=== PATIENT | male | born 1950 | race Caucasian/White ===

== ENCOUNTER → 2021-10-21 | Outpatient (CLI) | payer MEDICARE, OTHER | LOC: COL.RAD 09:46 | DX: R16.1 Splenomegaly, not elsewhere classified (principal) ==

== ENCOUNTER 2023-01-18 09:02 | Outpatient (CLI) | payer MEDICARE, OTHER ==
[~2023-01-18] VITALS: Ht 170.2 cm; Wt 89.2 kg
[2023-01-18 09:35] VITALS: BP 166/57; PULSE 59; TEMP 97.1
[2023-01-18] MEDS ORDERED: VIGAMOX 0.5% 3 M3 ML OP (09:54)
[2023-01-18] MEDS ORDERED: PREDFORTE5ML (09:54)
[2023-01-18] MEDS ORDERED: PRINIVIL10 MG PO (09:54)
[2023-01-18] MEDS ORDERED: MEGARED ADVANC1 EAC1 PO (09:56)
[2023-01-18] MEDS ORDERED: CRESTOR 10MG10 MG PO (09:56)
[2023-01-18 09:58] VITALS: BP 166/57; PULSE 59; TEMP 97.1
--- NOTE | 2023-01-18 10:01 | NUR ---
908-PATIENT ARRIVED TO [facility] VIA AMBULATION, ALERT AND ORIENTED. PT HISTORY AND ALLERGIES REVIEWED. CONSENTS SIGNED AND VERIFIED, QUESTIONS INVITED. PT CHANGED INTO GOWN INDEPENDENTLY, VITAL SIGNS TAKEN. HYPERTENSION NOTED 166/57. 20G IV STARTED TO RFA. SPOUSE BROUGHT TO BEDSIDE. CALL LIGHT AND BLANKET PROVIDED.
[2023-01-18 10:55] VITALS: BP 127/61; PULSE 59; TEMP 98.2
--- NOTE | 2023-01-18 10:55 | NUR ---
1055 PATIENT RETURNS TO ROOM 2 VIA CART. PATIENT IS ALERT AND ORIENTED. RESPIRATIONS EVEN AND UNLABORED. PATIENT IS IN ROOM. PATIENT DOES NOT WANT ANYTHING TO EAT OR DRINK AT THIS TIME. DRESSING TO POSTERIOR LEFT HIP. CDI. NO C/O PAIN. 1115 THIS NURSE DISCONTINUED IV FROM RIGHT FOREARM WITH NO DIFFICULTIES. IV CATHETER INTACT. 1120 THIS NURSE REVIEWED DISCHARGE INSTRUCTIONS WITH PATIENT AND PATIENT . BOTH VERBALIZED UNDERSTANDING. 1130 PATIENT DISCHARGED FROM UNIT VIA WHEELCHAIR IN STABLE CONDITION.
[2023-01-18 11:10] VITALS: BP 115/60; PULSE 55
[2023-01-18 11:25] VITALS: BP 143/62; PULSE 54
[2023-01-18 11:32] VITALS: BP 115/61; PULSE 59
[2023-01-18 14:26] LABS: HEMATOCRIT 39.1 % (42.0-52.0); HEMOGLOBIN 12.7 g/dl (13.5-18.0); MEAN CELL VOLUME 83 fl (80.0-100.0); MEAN CORPUSCULAR HEMOGLOBIN 27 pg (27-31); MEAN CORPUSCULAR HGB CONC 33 g/dl (33.0-37.0); MEAN PLATELET VOLUME 11.5 fl (7.4-10.4); PLATELET COUNT 56 K/mm3 (130-400); RED BLOOD COUNT 4.73 M/mm3 (4.20-5.60); REDCELL DISTRIBUTION WIDTH-CV 14.2 % (11.5-14.5)
[2023-01-18 14:46] LABS: BAND 1 % (0-10); LYMPHOCYTE 27 % (20.0-51.0); NEUTROPHILS 38 % (42.0-75.2)
[2023-01-18 14:47] LABS: HYPOCHROMIA 1+
== END 2023-01-18 11:30 | disposition home or self-care (01) ==
LOC: SDCO 09:02
PROVIDERS: Pathology Anatomic Pathology & Clinical Pathology
DX: D69.6 Thrombocytopenia, unspecified (principal); D64.9 Anemia, unspecified; D75.89 Other specified diseases of blood and blood-forming organs; Z87.891 Personal history of nicotine dependence
CPT/HCPCS: J2704; J7120

== ENCOUNTER → 2024-03-06 | Outpatient (CLI) | payer MEDICARE, OTHER ==
[~2024-03-06] MED LIST: CRESTOR 10MG10 MG PO; MEGARED ADVANC1 EAC1 PO; PREDFORTE5ML; PRINIVIL10 MG PO; VIGAMOX 0.5% 3 M3 ML OP
[2024-03-06 09:37] LABS: HEMATOCRIT 39.8 % (42.0-52.0); HEMOGLOBIN 12.4 g/dl (13.5-18.0); MEAN CELL VOLUME 85 fl (80.0-100.0); MEAN CORPUSCULAR HEMOGLOBIN 26 pg (27-31); MEAN CORPUSCULAR HGB CONC 31 g/dl (33.0-37.0); MEAN PLATELET VOLUME 11.9 fl (7.4-10.4); PLATELET COUNT 67 K/mm3 (130-400); RED BLOOD COUNT 4.71 M/mm3 (4.20-5.60); REDCELL DISTRIBUTION WIDTH-CV 14.4 % (11.5-14.5)
[2024-03-06 14:42] LABS: BAND 6 % (0-10); EOSINOPHIL 1 % (0-4); LYMPHOCYTE 35 % (20.0-51.0); METAMYELOCYTE 6 % (0-0); NEUTROPHILS 29 % (42.0-75.2); PLATELET ESTIMATE DECREASED (NORMAL)
== END ==
LOC: COL.LAB 08:10
PROVIDERS: Internal Medicine
DX: D50.9 Iron deficiency anemia, unspecified (principal)